=== PATIENT | male | born 1960 | race Caucasian/White ===

== ENCOUNTER → 2017-02-20 | Outpatient (CLI) | payer BC ==
[~2017-02-20] VITALS: Ht 198.1 cm; Wt 106.6 kg
[~2017-02-20] MED LIST: ALEVE220 MG PO; FLAXSEED-FISH-400 MG PO; GLUCOSAMINE-CH1 EA49 PO; SAW PALMETTO C1 EACH PO; UNICOMPLEX M TA1 TA1 PO
--- NOTE | ~2017-02-20 | HPC ---
[facility] [address] [place] [address] [place] [address] PAIN MANAGEMENT CONSULTATION Name: JAY DICKENS [id number] Admission: 02/20/17 Attend Phys: Lion Arauz DO Discharge: Date of : 62 Report #: [id number] THIS REPORT FOR: //name// CC: Alexandru Arauz The patient is a pleasant 56-year-old gentleman seen in consultation at the request of Dr. Saenz for evaluation of pain in the low back, left buttock and leg. The patient incidentally notes some pain right cervical radicular. The patient was seen some 20 years ago for lumbar radicular symptoms treated with "blind" lumbar epidural injections with good relief. He has done reasonably well, but noted in August, pain began to recur. He denies antecedent trauma and overuse. He states after about 15-20 minutes, he develops fairly classic neurogenic claudication symptoms with the left leg feeling heavy, some paresthesia, pain and tingling in the low back, posterior lateral thigh and lateral lower extremity with decreased 2-point discrimination. Describes symptoms that are steady, periodic, burning, shooting, aching, sharp, throbbing, stabbing. Rates the pain anywhere from 6-8 on a VAS. He denies saddle anesthesia, bowel or bladder continence changes. He does have some subjective weakness in the left leg, again, after standing for 10-15 minutes. The patient notes incidentally that he had a left spermatocele removed in September, it is unclear if this afforded any change in his symptoms. REVIEW OF SYSTEMS: A complete review of systems attached to chart and gone over with the patient. He is , does not smoke or drink alcohol to excess. He has enjoyed remarkably good health. He takes some multiple vitamins. He had the aforementioned spermatocele removed earlier this year and prior lumbar radicular symptoms treated with epidural injections, now some 20 years ago. He works as a group parts administrator. He continues to work despite pain. Pain impact score is 20/70. PHYSICAL EXAMINATION: GENERAL: Reveals a 6 feet, 6 inches, 235 pounds gentleman in moderate distress. VITAL SIGNS: Blood pressure is 123/84, pulse 72, respirations 16, BMI is 27.2 kilograms per meter squared. Subjective pain score is 6 on a VAS at present. NEUROLOGIC: Cranial nerves 2-12 are grossly intact. Pupils are equal and reactive to light and accommodation. Extraocular muscles are intact. There is no nystagmus. Lateral gaze deviation. Cervical range of motion is full. He [address] [address] PAIN MANAGEMENT CONSULTATION Name: JAY DICKENS Room #: REG [facility] Yusuf#: [id number] Admission: 02/20/17 Attend Phys: Lion Arauz DO Discharge: Date of : 62 Report #: [id number] does have a little crepitance with extension. Modestly positive Lhermitte's into the left thumb and index. Slight decreased left biceps deep tendon reflex; otherwise, muscle strength is symmetric. HEART: Regular rhythmical without murmur. LUNGS: Clear to auscultation. ABDOMEN: Benign. MUSCULOSKELETAL: Rises from chair using armrest. Gait is tandem. Lumbar flexion is good. Some diffuse tenderness across the low back. No discrete trigger points noted. Slight decreased left hip flexion in the lower extremity extension and strength compared to the right. Patellar reflex is diminished on the left 1/4, 2/4 on the right. Achilles reflexes are symmetric. Straight leg raise is equivocal at 30 degrees. DIAGNOSTIC STUDIES: MRI from 01/17/2017 does note L4-L5 to have a chronic left pars interarticularis defect with left-sided facet arthropathy causing severe left neural foraminal narrowing compromising left L4 nerve root. Similarly, there is chronic left L5 pars defect with severe left neural foraminal stenosis at L5. Cervical MRI from 01/17/2017 notes C5-C6 to have bilateral neural foraminal narrowing as well. ASSESSMENT: 1. Symptomatic cervical radiculopathy by clinical exam and history, symptoms relatively quiescent. 2. Symptomatic lumbar radiculopathy, left L4 radicular pain pattern by clinical exam and history. RECOMMENDATION: 1. Continue Aleve [id number], suggest 2 of the 220 mg tablets b.i.d. for 5-7 days and then back to 1 b.i.d. 2. Lumbar epidural injection under fluoroscopy today at L4-L5 left to midline. 3. Follow up in 30 days for reevaluation and consideration for transforaminal epidural injection (left L4-L5 plus minus L5-S1 if indicated clinically). We may consider addressing cervical radicular symptoms at that time. Thank you for allowing me to participate in the patient's care. I will keep you abreast of his progress. PROCEDURE: Lumbar epidural injection under fluoroscopy. PROCEDURE NOTE: After both written and informed consent to include risk of spinal cord damage, increased pain, weakness and dural puncture, the patient was taken to the fluoroscopy suite, placed in the prone position. After sterile prep and drape, a skin wheal with lidocaine was raised. A 22-gauge epidural Tuohy needle was inserted in the midline at L4-L5 with good loss to resistance. [address] [address] PAIN MANAGEMENT CONSULTATION Name: JAY DICKESN Room #: [facility] [id number] Admission: 02/20/17 Attend Phys: Lion Arauz DO Discharge: Date of : 62 Report #: [id number] Negative aspiration for cerebrospinal fluid or blood was noted. Then 1 mL of Omnipaque under biplanar fluoroscopy showed good spread within the epidural space. This was followed with 80 mg of triamcinolone plus 1 mL of 1.5% preservative-free Xylocaine, 0.5 mL Xylocaine was then injected to flush the needle; it was removed. The patient was monitored for an appropriate period of time and discharged in good and stable condition. <ELECTRONICALLY SIGNED> By: Lion Arauz DO 02/21/17 [id number] Lion Arauz DO /nt
[2017-02-20 10:43] VITALS: BP 123/84
== END | disposition home or self-care (01) ==
LOC: PAIN 07:26
DX: M54.16 Radiculopathy, lumbar region (principal); M54.12 Radiculopathy, cervical region; Z98.890 Other specified postprocedural states

== ENCOUNTER → 2017-03-20 | Outpatient (CLI) | payer BC ==
[~2017-03-20] VITALS: Ht 198.1 cm; Wt 111.2 kg
[~2017-03-20] MED LIST changes: +MEDROLDOSEPACK PO; +PENNSAID112 GM TRANSDERM; +VOLTAREN GEL 1100 GM TOP
--- NOTE | ~2017-03-20 | HPC ---
[facility] [place] [address] [place] [address] PAIN MANAGEMENT CONSULTATION Name: JAY DICKENS Room #: REG [facility] Jody.#: [id number] Admission: 03/20/17 Attend Phys: Lion Arauz DO Discharge: Date of : 62 Report #: [id number] THIS REPORT FOR: //name// CC: Musa Arauz HISTORY OF PRESENT ILLNESS: The patient is a very pleasant 56-year-old gentleman being seen for symptomatic lumbar radiculopathy. He was seen in consultation on 02/20/2017, we progressed with one epidural injection at that time. He returns to pain clinic today noting the pain that he had about 85% relief, is down to about 65% presently. He is able to stand and walk much easier. Gait is tandem. PHYSICAL EXAMINATION: Shows a modestly antalgic gait. Still modestly positive straight leg raise on the left. Slight subjective decreased left hip flexion-extension strength. ASSESSMENT: Symptomatic lumbar radiculopathy, history of cervical radiculopathy with excellent improvement of symptoms following 1 epidural injection, still has ongoing symptoms. RECOMMENDATION: Repeat epidural injection under fluoroscopy today. Follow up in 3-4 weeks for reevaluation. If he has overall 80-85% improvement of baseline pain, we will have him cancel the followup appointment for consideration of third injection. I will be happy to see him on an as needed basis. Do continue Aleve b.i.d. [id number]. ASSESSMENT: Symptomatic lumbar radiculopathy. PROCEDURE: Lumbar epidural injection under fluoroscopy. PROCEDURE NOTE: After both written and informed consent to include risk of spinal cord damage, increased pain, weakness and dural puncture, the patient was taken to the fluoroscopy suite, placed in the prone position. After sterile prep and drape, a skin wheal with lidocaine was raised. A 22-gauge epidural Tuohy needle was inserted in the midline at L4-L5 with good loss to resistance. Negative aspiration for cerebrospinal fluid or blood was noted. Then 1 mL of Omnipaque under biplanar fluoroscopy showed good spread within the epidural space. This was followed with 80 mg of triamcinolone plus 1 mL of 1.5% preservative-free Xylocaine, 0.5 mL Xylocaine was then injected to flush the needle; it was removed. The patient was monitored for an appropriate period of time and discharged in good and stable condition. <ELECTRONICALLY SIGNED> By: Lion Arauz DO 03/21/17 [id number] Lion Arauz DO /nt
[2017-03-20 13:51] VITALS: BP 142/91
== END | disposition home or self-care (01) ==
LOC: PAIN 06:43
DX: M54.16 Radiculopathy, lumbar region (principal); G89.29 Other chronic pain; M54.12 Radiculopathy, cervical region; Z98.890 Other specified postprocedural states

== ENCOUNTER → 2017-10-03 | Outpatient (CLI) | payer BC ==
[~2017-10-03] VITALS: Ht 198.1 cm; Wt 111.0 kg
[2017-10-03 10:01] VITALS: BP 130/87
== END ==
LOC: PAIN 06:30
DX: M25.512 Pain in left shoulder (principal); M79.601 Pain in right arm; Z79.899 Other long term (current) drug therapy